=== PATIENT | male | born 1935 | race Caucasian/White ===

== ENCOUNTER 2016-11-26 11:53 | Emergency (ER) | payer OTHER ==
[2016-11-26 12:08] VITALS: RESP 18; TEMP 98
--- NOTE | 2016-11-26 12:20 | EDPHY ---
H & P Stated Complaint: skin tear 10 days ago - 3 days ago inc. swelling/red/pain Time Seen by Provider: 11/26/16 12:07 HPI/ROS: CHIEF COMPLAINT: Abrasion HISTORY OF PRESENT ILLNESS: Patient is an 81-year-old man who comes to the emergency department complaining of an abrasion to his left dorsal hand. He states that he scraped about a week ago. He has been using antibiotic ointment but it is continuing to appear red and slightly inflamed. No drainage. No fevers. No body aches. REVIEW OF SYSTEMS: Constitutional: denies: chills, fever, recent illness, recent injury EENTM: denies: blurred vision, double vision, nose congestion Respiratory: denies: cough, shortness of breath Cardiac: denies: chest pain, irregular heart rate, lightheadedness, palpitations Gastrointestinal/Abdominal: denies: abdominal pain, diarrhea, nausea, vomiting, blood streaked stools Genitourinary: denies: dysuria, frequency, hematuria, pain Musculoskeletal: denies: joint pain, muscle pain Skin: see HPI Neurological: denies: headache, numbness, paresthesia, tingling, dizziness, weakness Hematologic/Lymphatic: denies: blood clots, easy bleeding, easy bruising Immunologic/allergic: denies: HIV/AIDS, transplant EXAM: GENERAL: Well-appearing, well-nourished and in no acute distress. HEAD: Atraumatic, normocephalic. EYES: Pupils equal round and reactive to light, extraocular movements intact, sclera anicteric, conjunctiva are normal. ENT: TMs normal, nares patent, oropharynx clear without exudates. Moist mucous membranes. NECK: Normal range of motion, supple without lymphadenopathy or JVD. LUNGS: Breath sounds clear to auscultation bilaterally and equal. No wheezes rales or rhonchi. HEART: Regular rate and rhythm without murmurs, rubs or gallops. ABDOMEN: Soft, nontender, normoactive bowel sounds. No guarding, no rebound. No masses appreciated. BACK: No CVA tenderness, no spinal tenderness, step-offs or deformities EXTREMITIES: Normal range of motion, no pitting or edema. No clubbing or cyanosis. NEUROLOGICAL: Cranial nerves II through XII grossly intact. Normal speech, normal gait. 5/5 strength, normal movement in all extremities, normal sensation PSYCH: Normal mood, normal affect. SKIN: Small nickel sized abrasion to left dorsal hand/webspace of the thumb. Mildly erythematous. Weeping. No swelling Source: Patient Exam Limitations: No limitations - Personal History Current Tetanus Diphtheria and Acellular Pertussis (TDAP): Yes Tetanus Vaccine Date: 2009 - Medical/Surgical History Hx Asthma: No Hx Chronic Respiratory Disease: No Hx Diabetes: No Hx Cardiac Disease: No Hx Renal Disease: No Hx Cirrhosis: No Hx Alcoholism: No Hx HIV/AIDS: No Hx Splenectomy or Spleen Trauma: No Other PMH: HBP,HIGH CHOLESTEROL. BLADDER REMOVED AND APPY/ Defibulator- pacer - Family History Significant Family History: No pertinent family hx - Social History Smoking Status: Former smoker Alcohol Use: Sober Drug Use: None Constitutional: Initial Vital Signs Temperature (C) 36.6 C 11/26/16 12:06 Heart Rate 69 11/26/16 12:06 Respiratory Rate 18 11/26/16 12:06 Blood Pressure 190/103 H 11/26/16 12:06 O2 Sat (%) 95 11/26/16 12:06 O2 Delivery Mode Room Air Allergies/Adverse Reactions: codeine [Codeine] Allergy (Mild, Verified 04/27/16 10:37) Rash Home Medications: Medication Instructions Recorded Aspirin [Aspirin 325 mg (OTC)] 325 mg PO DAILY 04/05/13 Carvedilol [Coreg (RX)] 6.25 mg PO BIDMEAL 04/05/13 Clopidogrel Bisulfate [Plavix (RX)] 75 mg PO DAILY 04/05/13 Lisinopril [Zestril 2.5 mg (RX)] 2.5 mg PO DAILY 04/05/13 Multivitamins [Tab-A-Ishan] 1 each PO DAILY 04/05/13 Atorvastatin Calcium [Lipitor 20 04/27/16 mg (*)] Cephalexin [Keflex] 500 mg PO TID #21 cap 11/26/16 Medical Decision Making ED Course/Re-evaluation: Start the patient on Keflex. He will follow up with his primary physician. No signs of MRI say type infection at this point. Differential Diagnosis: Partial list of the Differential diagnosis considered include but were not limited to; abrasion, skin infection and although unlikely based on the history and physical exam, I also considered cellulitis, abscess, deep space infection. I discussed these differential diagnoses and the plan with the patient as well as the usual and expected course. The patient understands that the diagnosis is provisional and that in medicine we are not always correct and that further workup is often warranted. Usual and customary warnings were given. All of the patient's questions were answered. The patient was instructed to return to the emergency department should the symptoms at all worsen or return, otherwise to followup with the physician as we discussed. Departure - Departure Disposition: Home, Routine, Self-Care Clinical Impression: Skin infection Condition: Fair Instructions: Acute Wounds (ED) Referrals: KATHRYN ATKINS [Primary Care Provider] - As per Instructions Prescriptions: Cephalexin [Keflex] 500 mg PO TID #21 cap
[2016-11-26 12:33] VITALS: BP 155/87; PULSE 78; O2SAT 98
== END 2016-11-26 12:24 | disposition home or self-care (01) ==
LOC: CED 11:53
DX: L08.9 Local infection of the skin and subcutaneous tissue, unspecified (principal); Z87.891 Personal history of nicotine dependence; Z79.82 Long term (current) use of aspirin; X58.XXXA Exposure to other specified factors, initial encounter

== ENCOUNTER → 2018-04-09 | Outpatient (CLI) | payer OTHER ==
[~2018-04-09] MED LIST: IOPAMIDOL (ISOVUE-300) 100 ML BTL ONE
== END ==
LOC: CIMAGING 09:42
PROVIDERS: ATTEND Physician Assistant
DX: K57.30 Diverticulosis of large intestine without perforation or abscess without bleeding (principal); D73.9 Disease of spleen, unspecified; N20.2 Calculus of kidney with calculus of ureter; K44.9 Diaphragmatic hernia without obstruction or gangrene
CPT/HCPCS: 74177; Q9967